=== PATIENT | male | born 1955 | race Caucasian/White ===

== ENCOUNTER 2017-03-20 22:00 | Emergency (ER) | payer OTHER ==
--- NOTE | 2017-03-20 22:25 | EDPHY ---
H & P HPI/ROS: Chief Complaint: Cardiac arrest HPI: 61-year-old type 2 diabetic who is been in his usual state of health was at home this evening watching football game and a reclining chair. Patient's heard some unusual noises and found him unresponsive. Police department started CPR on arrival. This was continued by EMS. EMS found the patient in ventricular fibrillation. He was defibrillated multiple times. Patient was intubated with an 8-0 endotracheal tube to 24 at the teeth. He had good capnography. Patient had an IO placed in the right tibia. He received 8 rounds of epinephrine, 300 mg of amiodarone, and 1 amp of bicarb by EMS with continued CPR without any change in his rhythm. ALS was initiated by EMS at 9: 20 p.m. Review of systems: Unavailable secondary to patient in cardiac arrest PMH: Type 2 diabetes Social History: Unknown Family History: Unknown Physical Exam: Gen: Unresponsive, pallor, CPR in progress HEENT: Eyes: Pupils fixed and dilated Mouth: Endotracheal tube in place, 24 cm at the teeth Neck: no JVD Chest: lungs clear to auscultation Heart: Heart tones absent Abd: Mildly distended, soft Ext: no edema Skin: no rash Neuro: Unresponsive, GCS 3 T Medical Decision Making ED Course/Re-evaluation: Patient arrived at 10:02 p.m.. CPR in progress. ET tube in place. Rhythm check confirmed fine ventricular fibrillation. No pulses. Patient cardioverted with 200 joules, 1 amp of epinephrine via the IO, 1 at bicarb via the IO, remained in fine VFib, CPR resumed Rhythm check, fine V fib. IV is been placed. Glucose 220. Patient cardioverted with 200 joules, 1 amp epinephrine via the IV. Rhythm check, very fine VFib, bordering asystole. Bedside echocardiogram performed by myself shows cardiac standstill. Total time of resuscitation now at 50 minutes. Patient pronounced at 10:10 p.m. by myself. Departure - Departure Disposition: Clinical Impression: Cardiac arrest Condition: Critical Referrals: Patient,NotPresent [Primary Care Provider] - As per Instructions
[2017-03-20] MEDS ORDERED: EPINEPHrine 1 MG/10 ML SYR IVP ONE ×2 (23:23)
[2017-03-20] MEDS ORDERED: SODIUM BICARBONATE 50 MEQ/50 ML SYR IVP ONE (23:24)
[2017-03-21 00:03] VITALS: TEMP 96.3; O2SAT 90
== END 2017-03-20 22:10 | disposition expired ==
LOC: EDUNIT#
DX: I46.9 Cardiac arrest, cause unspecified (principal); E11.9 Type 2 diabetes mellitus without complications
CPT/HCPCS: 82947-QW; 96374